=== PATIENT | male | born 1975 | race Caucasian/White ===

== ENCOUNTER 2024-05-28 08:53 | Day surgery (SDC) | payer OTHER ==
[~2024-05-28] VITALS: Ht 175.3 cm; Wt 101.5 kg
[2024-05-28] MEDS ORDERED: LR 1,000 ML IV SCH ×2 (09:05→11:55)
[2024-05-28] MEDS ORDERED: IBUP-1114 PO (09:41)
[2024-05-28] MEDS ORDERED: fentaNYL 100 MCG/2 ML INJECTION As Ordered ONE (10:06)
[2024-05-28] MEDS ORDERED: propofoL 200 MG/20 ML VIAL As Ordered ONE (10:07)
[2024-05-28] MEDS ORDERED: ROCURONIUM BROMIDE 50MG/5ML VIAL As Ordered ONE (10:07)
[2024-05-28] MEDS ORDERED: LIDOCAINE 2% 100MG/5ML SDV (FOR ANES.) As Ordered ONE (10:08)
[2024-05-28] MEDS: OXYMETAZOLINE 0.05% NASAL SPRAY (AFRIN) As Ordered ONE (10:47)
[2024-05-28] MEDS: AMPICILLIN SOD/SULBACTAM SOD 3 GM in D5W MINI-BAG PLUS 100 ML IV ONE (10:50)
[2024-05-28] MEDS ORDERED: ONDANSETRON 4MG 2ML VIAL As Ordered ONE (11:03)
[2024-05-28] MEDS ORDERED: SUGAMMADEX SODIUM 500 MG/5 ML VIAL (BRIDION) As Ordered ONE (11:04)
[2024-05-28] MEDS ORDERED: KETOROLAC 60MG 2ML VIAL As Ordered ONE (11:04)
[2024-05-28] MEDS ORDERED: ACETAMINOPHEN 1000MG 100ML IV BAG As Ordered ONE (11:04)
[2024-05-28] MEDS ORDERED: ePHEDrine SULFATE 25 MG/5 ML(5MG/ML) SYRINGE As Ordered ONE (11:08)
[2024-05-28] MEDS ORDERED: ALBUTEROL 6.7GM INHALER **FOR ANES. CART/OMNICELL ONLY As Ordered ONE (11:08)
[2024-05-28] MEDS: LIDOCAINE 2% W/ EPINEPHRINE 1.7 ML DENTAL INJ As Ordered ONE (11:08)
[2024-05-28] MEDS ORDERED: fentaNYL 100 MCG/2 ML INJECTION IV PRN (11:55)
[2024-05-28] MEDS ORDERED: HYDROMORPHONE HCL 0.5 MG/ 0.5 ML SYRINGE IV PRN (11:55)
[2024-05-28] MEDS ORDERED: ONDANSETRON 4MG 2ML VIAL IV PRN (11:55)
[2024-05-28] MEDS ORDERED: oxyCODONE 5MG TAB PO PRN (11:55)
[2024-05-28 12:56] VITALS: BP 129/78; TEMP 98.2; O2SAT 95
== END 2024-05-28 13:05 | disposition home or self-care (01) ==
LOC: M SDC 08:53
PROVIDERS: ATTEND Dentist
DX: K02.9 Dental caries, unspecified (principal); R06.83 Snoring; Z88.8 Allergy status to other drugs, medicaments and biological substances; F17.290 Nicotine dependence, other tobacco product, uncomplicated
CPT/HCPCS: 88300; C9290; D7140; D7210; D9223; J0131; J0295; J1100; J1885; J2405; J3010